=== PATIENT | female | born 1950 | race Caucasian/White ===

== ENCOUNTER → 2018-05-08 | Outpatient (CLI) | payer BC, MEDICARE ==
[~2018-05-08] MED LIST: AMIO100T4 PO; AMIO200T42 PO; APIX5TAB PO; ASPI325T17 PO; ASPI81TA45 PO; CELE200C PO; CITR15SO PO; DIAZ5TAB4 PO; DILT240C61 PO; ENOX30DI3 SQ; FURO40TA6 PO; GABA-826 PO; GABA300C10 PO; GLIP10TA13 PO; GLIP5TAB10 PO; HYDR-3307 PO; INSU100C5 SQ-INSULIN; INSU100V8 SQ; METO50TA82 PO; POTA20TA89 PO; ROSU40TA PO; SITA1TAB5 PO; SITA50TA PO; TRAM50TA2 PO; VALS80TA3 PO; WARF2.5T32 PO; iron PO
[2018-05-08 10:57] LABS: BASOPHILS # (AUTO) 0.03 x10^3/uL (0-0.1); BASOPHILS % (AUTO) 0 % (0-1); EOSINOPHILS # (AUTO) 0.05 x10^3/uL (0-0.4); EOSINOPHILS % (AUTO) 1 % (1-7); LYMPHOCYTES # (AUTO) 0.85 x10^3/uL (1-3.4); LYMPHOCYTES % (AUTO) 9 % (22-44); MD NO; MEAN CORPUSCULAR HEMOGLOBIN 27.9 pg (27.0-34.8); MEAN CORPUSCULAR HGB CONC 32.8 g/dL (32.4-35.8); MEAN CORPUSCULAR VOLUME 85.1 fL (80-100); MEAN PLATELET VOLUME 8.3 fL (7.4-10.4); MONOCYTES # (AUTO) 0.73 x10^3/uL (0.2-0.8); MONOCYTES % (AUTO) 7 % (2-9); NEUTROPHILS # (AUTO) 8.13 x10^3/uL (1.8-6.8); NEUTROPHILS % (AUTO) 83 % (42-75); PLATELET COUNT 189 x10^3/uL (130-400); RED BLOOD COUNT 5.12 x10^6/uL (3.82-5.3); RED CELL DISTRIBUTION WIDTH 15.8 % (9.6-15.2)
[2018-05-08 10:58] LABS: MICROSCOPIC AUTO
[2018-05-08 11:07] LABS: INTERNATIONAL NORMALIZED RATIO 1.15 (0.93-1.1); PROTHROMBIN TIME 12.1 Seconds (9.6-11.5)
[2018-05-08 11:08] LABS: ALANINE AMINOTRANSFERASE 63 U/L (12-78); ALBUMIN 3.3 g/dL (3.4-5.0); ANION GAP 8 mmol/L (5-15); CALCIUM 9.4 mg/dL (8.5-10.1); CHLORIDE 110 mmol/L (98-107); CREATININE 1.94 mg/dL (0.55-1.02)
[2018-05-08 11:10] LABS: ALKALINE PHOSPHATASE 100 U/L (45-117); BILIRUBIN,TOTAL 0.5 mg/dL (0.2-1.0); TOTAL PROTEIN 7.2 g/dL (6.4-8.2)
== END | disposition home or self-care (01) ==
LOC: STAR 09:29
PROVIDERS: ATTEND Urology
DX: Z01.818 Encounter for other preprocedural examination (principal); N20.0 Calculus of kidney; I45.10 Unspecified right bundle-branch block
CPT/HCPCS: 36415; 80053; 81001; 85025; 85610; 85730; 87086; 93005

== ENCOUNTER 2018-05-19 05:52 | Inpatient (IN) | payer BC, MEDICARE ==
[~2018-05-19] VITALS: Ht 154.9 cm; Wt 104.2 kg
[2018-05-19 06:30] VITALS: BP 118/75
[2018-05-19] MEDS ORDERED: LACTATED RINGERS 1,000 ML IV SCH (06:31)
[2018-05-19 06:56] LABS: INTERNATIONAL NORMALIZED RATIO 1.07 (0.93-1.1); PROTHROMBIN TIME 11.3 Seconds (9.6-11.5)
[2018-05-19] MEDS ORDERED: SODIUM CHLORIDE 0.9% 1,000 ML IV SCH (07:00)
[2018-05-19] MEDS ORDERED: VISIPAQUE 270 MG/ML, 50ML BOTTLE ONE (08:00)
[2018-05-19] MEDS ORDERED: ACETAMINOPHEN 500 MG TABLET PO ONE (12:30)
[2018-05-19] MEDS ORDERED: ONDANSETRON ODT 8 MG PO ONE (12:30)
[2018-05-19] MEDS ORDERED: GENTAMICIN 80 MG/2 ML ONE (12:39)
[2018-05-19] MEDS ORDERED: ROCURONIUM 10MG/ML,5ML ONE (13:02)
[2018-05-19] MEDS ORDERED: LACTATED RINGERS 1,000 ML ONE (13:02)
[2018-05-19] MEDS ORDERED: GLYCOPYRROLATE 0.2MG/1ML, 5ML ONE (13:02)
[2018-05-19] MEDS ORDERED: LIDOCAINE 2% 100MG/5ML SYRINGE ONE (13:02)
[2018-05-19] MEDS ORDERED: FENTANYL PF 100 MCG/2ML ONE (13:02)
[2018-05-19] MEDS ORDERED: MIDAZOLAM 1 MG/ML, 5ML ONE (13:02)
[2018-05-19] MEDS ORDERED: NEOSTIGMINE 1 MG/ML, 10ML ONE (13:02)
[2018-05-19] MEDS ORDERED: CEFAZOLIN 1,000 MG ONE (13:02)
[2018-05-19] MEDS ORDERED: PROPOFOL 10 MG/ML, 20ML ONE (13:02)
[2018-05-19] MEDS ORDERED: DEXAMETHASONE 4 MG/ML, 1ML ONE (13:02)
[2018-05-19] MEDS ORDERED: EPHEDRINE 50 MG/ML, 1ML ONE (13:02)
[2018-05-19] MEDS ORDERED: HYDROmorphone 2 MG/ML, 1ML IVPush PRN (16:00)
[2018-05-19] MEDS ORDERED: LABETALOL 5MG/ML, 20ML IV PRN (16:00)
[2018-05-19] MEDS ORDERED: MEPERIDINE/PF 25MG/0.5ML IVPush PRN (16:00)
[2018-05-19] MEDS ORDERED: ALBUTEROL SULFATE 2.5 MG/3 ML NPPB PRN (16:00)
[2018-05-19] MEDS ORDERED: LORazepam 2 MG/ML, 1ML IVPush PRN (16:00)
[2018-05-19] MEDS ORDERED: OXYcodone 5 MG/5 ML ORAL.SOL UDC PO PRN (16:00)
[2018-05-19] MEDS ORDERED: METOCLOPRAMIDE 5 MG/ML, 2ML IV PRN (16:00)
[2018-05-19] MEDS ORDERED: FENTANYL PF 100 MCG/2ML IV PRN (16:00)
[2018-05-19] MEDS ORDERED: PROMETHAZINE 25 MG/ML, 1ML IV PRN (16:30)
[2018-05-19 19:15] VITALS: BP 105/37
[2018-05-19] MEDS: SULFAMETH./TRIMETHOPRIM DS 800MG/160MG TABLET PO SCH (21:39)
[2018-05-19] MEDS: ATORVASTATIN 80 MG TABLET PO SCH (21:39)
[2018-05-19 23:58] VITALS: BP 111/56
[2018-05-20 02:58] VITALS: BP 109/69
[2018-05-20 07:49] VITALS: BP 116/51
[2018-05-20] MEDS: DILTIAZEM 240 MG CAP.ER.24H PO SCH (09:00)
[2018-05-20] MEDS: AMIODARONE 200 MG TABLET PO SCH (09:29)
[2018-05-20] MEDS: SULFAMETH./TRIMETHOPRIM DS 800MG/160MG TABLET PO SCH ×2 (09:29→21:01)
[2018-05-20] MEDS: INSULIN GLARGINE 100 UNITS/ML, PEN SQ-INSULIN SCH (09:29)
[2018-05-20 15:02] VITALS: BP 118/58
[2018-05-20 20:42] VITALS: BP 132/60
[2018-05-20] MEDS: ATORVASTATIN 80 MG TABLET PO SCH (21:01)
[2018-05-20] MEDS: HYDROcodone/APAP 5/325 TABLET PO PRN (23:58)
[2018-05-21 02:17] VITALS: BP 122/56
[2018-05-21 07:29] VITALS: BP 117/60
[2018-05-21] MEDS: AMIODARONE 200 MG TABLET PO SCH (08:22)
[2018-05-21] MEDS: SULFAMETH./TRIMETHOPRIM DS 800MG/160MG TABLET PO SCH (08:22)
[2018-05-21] MEDS: HYDROcodone/APAP 5/325 TABLET PO PRN (08:22)
[2018-05-21] MEDS: INSULIN GLARGINE 100 UNITS/ML, PEN SQ-INSULIN SCH (08:23)
[2018-05-21] MEDS: DILTIAZEM 240 MG CAP.ER.24H PO SCH (08:23)
[2018-05-21] MEDS ORDERED: HYDR-3240 PO (12:38)
[2018-05-21] MEDS ORDERED: SULF1TAB24 PO (12:38)
== END 2018-05-21 13:50 | disposition home or self-care (01) | DRG 661 ==
LOC: OUT 05:52 → OBSVTOIN 18:23 → ORIP 18:23 → 4NOR 19:00 → OUT 19:17 → DCLOUNGE 05-21 13:37
PROVIDERS: ADMIT Urology; ATTEND Urology
PROC: 0T763ZZ Dilation of Right Ureter, Percutaneous Approach (ICD-10-PCS; 2018-05-19)
PROC: 0TF33ZZ Fragmentation in Right Kidney Pelvis, Percutaneous Approach (ICD-10-PCS; 2018-05-19)
PROC: BT111ZZ Fluoroscopy of Right Kidney using Low Osmolar Contrast (ICD-10-PCS; 2018-05-19)
PROC: 0T9330Z Drainage of Right Kidney Pelvis with Drainage Device, Percutaneous Approach (ICD-10-PCS; principal; 2018-05-19 12:30)
DX: N20.0 Calculus of kidney (principal); N18.9 Chronic kidney disease, unspecified; I12.9 Hypertensive chronic kidney disease with stage 1 through stage 4 chronic kidney disease, or unspecified chronic kidney disease; E11.22 Type 2 diabetes mellitus with diabetic chronic kidney disease; R09.02 Hypoxemia
CPT/HCPCS: 36415; 50433; 74425; J3490; 74176; 82360; 82962; 85610; 86850; 86900; 86923; 88300; 99156; 99157; C1729; C1894; G0378; J0690; J1100; J2250; J2550; J2704; J2710; J3010; Q0162; Q9966; C1727; C1758; C1769; C2625; J1580; J1815; J2310; J2765; J7030; J7120

== ENCOUNTER 2018-05-26 12:52 | Inpatient (IN) | payer BC, MEDICARE ==
[~2018-05-26] VITALS: Ht 154.9 cm; Wt 96.1 kg
[~2018-05-26 12:52] MED LIST changes: +HYDR-3240 PO; +SULF1TAB24 PO
[2018-05-26 14:04] LABS: MEAN CORPUSCULAR HEMOGLOBIN 27.5 pg (27.0-34.8); MEAN CORPUSCULAR HGB CONC 32.1 g/dL (32.4-35.8); MEAN CORPUSCULAR VOLUME 85.6 fL (80-100); MEAN PLATELET VOLUME 8.8 fL (7.4-10.4); PLATELET COUNT 244 x10^3/uL (130-400); RED BLOOD COUNT 4.76 x10^6/uL (3.82-5.3); RED CELL DISTRIBUTION WIDTH 15.7 % (9.6-15.2)
[2018-05-26 14:12] LABS: ALBUMIN 2.5 g/dL (3.4-5.0); ANION GAP 10 mmol/L (5-15); CALCIUM 8.4 mg/dL (8.5-10.1); CHLORIDE 101 mmol/L (98-107); CREATININE 3.31 mg/dL (0.55-1.02)
[2018-05-26 14:17] LABS: ALKALINE PHOSPHATASE 130 U/L (45-117); TOTAL PROTEIN 6.7 g/dL (6.4-8.2); TROPONIN I < 0.015 ng/mL (0.000-0.045)
[2018-05-26 14:19] LABS: ALANINE AMINOTRANSFERASE 1484 U/L (12-78)
[2018-05-26 14:23] LABS: MD YES
[2018-05-26 14:28] LABS: LYMPH#(MANUAL) 0.42 x10^3/uL (1-3.4); LYMPHS% (MANUAL) 2 % (22-44); MONOS#(MANUAL) 1.06 x10^3/uL (0.3-2.7); MONOS% (MANUAL) 5 % (2-9); SEG#(MANUAL) 19.62 x10^3/uL (1.8-6.8); SEGS% (MANUAL) 93 % (42-75)
[2018-05-26 14:29] LABS: <PLATELET ESTIMATE> ADEQUATE; <PLT MORPHOLOGY> NORMAL PLT MORPH; ANISOCYTOSIS 1+; POLYCHROMASIA 1+
[2018-05-26] MEDS ORDERED: ONDANSETRON 2MG/ML, 2ML IVPush ONE (14:30)
[2018-05-26] MEDS ORDERED: SODIUM CHLORIDE 0.9% 1,000ML IVBOLUS ONE (14:30)
[2018-05-26] MEDS ORDERED: SODIUM CHLORIDE FLUSH 10ML SYR IVF ONE (14:30)
[2018-05-26] MEDS ORDERED: MORPHINE SULFATE 4 MG/ML, 1ML IVPush PRN ×2 (14:30→19:00)
[2018-05-26 16:11] LABS: MICROSCOPIC INDICATED
[2018-05-26 16:12] LABS: CULTURE INDICATED? YES
[2018-05-26] MEDS ORDERED: CEFTRIAXONE PMX 1GM/50ML 50 ML IV ONE (17:00)
[2018-05-26 17:13] LABS: MICROSCOPIC INDICATED
[2018-05-26 17:32] LABS: CULTURE INDICATED? NO
[2018-05-26] MEDS ORDERED: CEFTRIAXONE PMX 1GM/50ML 50 ML ONE (18:00)
[2018-05-26 18:45] VITALS: BP 141/83
[2018-05-26] MEDS ORDERED: CEFTRIAXONE PMX 1GM/50ML 50 ML IV SCH (19:00)
[2018-05-26 19:20] VITALS: BP 161/83
[2018-05-26] MEDS ORDERED: LIDODERM 5% PATCH TD PRN (19:30)
[2018-05-26] MEDS ORDERED: ONDANSETRON 2MG/ML, 2ML IVPush PRN (19:30)
[2018-05-26] MEDS ORDERED: TEMAZEPAM 15 MG CAPSULE PO PRN (19:30)
[2018-05-26] MEDS ORDERED: DOCUSATE 100 MG CAPSULE PO PRN (19:30)
[2018-05-26] MEDS ORDERED: morphine SULFATE 10 MG/ML, 1ML IVPush PRN (19:30)
[2018-05-26] MEDS ORDERED: hydrALAzine 20 MG/ML, 1ML IVPush PRN (19:30)
[2018-05-26] MEDS ORDERED: PHARMACY MAY ADJ FOR RENAL FX MC PRN (20:30)
[2018-05-26] MEDS ORDERED: APIXABAN 5 MG TABLET PO SCH (21:00)
[2018-05-26] MEDS ORDERED: ATORVASTATIN 80 MG TABLET PO SCH (21:00)
[2018-05-26] MEDS ORDERED: ONDANSETRON 4 MG TABLET ONE (23:13)
[2018-05-26] MEDS ORDERED: ONDANSETRON ODT 4 MG PO PRN (23:30)
[2018-05-26] MEDS: INSULIN LISPRO 100 UNITS/ML, PEN SQ-INSULIN SCH (23:41)
[2018-05-27 01:53] VITALS: BP 108/66
[2018-05-27] MEDS ORDERED: CEFTRIAXONE PMX 1GM/50ML 50 ML IV SCH (06:00)
[2018-05-27 07:04] VITALS: BP 101/64
[2018-05-27] MEDS: INSULIN LISPRO 100 UNITS/ML, PEN SQ-INSULIN SCH ×4 (07:23→20:40)
[2018-05-27] MEDS: CEFTRIAXONE PMX 1GM/50ML 50 ML IV SCH (08:53)
[2018-05-27] MEDS: INSULIN GLARGINE 100 UNITS/ML, PEN SQ-INSULIN SCH (08:54)
[2018-05-27] MEDS: AMIODARONE 200 MG TABLET PO SCH (08:54)
[2018-05-27] MEDS: LINAGLIPTIN 5 MG TAB PO SCH (08:55)
[2018-05-27] MEDS: DILTIAZEM 240 MG CAP.ER.24H PO SCH (08:55)
[2018-05-27 09:06] LABS: INTERNATIONAL NORMALIZED RATIO 1.3 (0.93-1.1)
[2018-05-27 09:39] LABS: PROTHROMBIN TIME 13.6 Seconds (9.6-11.5)
[2018-05-27 12:38] VITALS: BP 118/74
[2018-05-27] MEDS ORDERED: FENTANYL PF 100 MCG/2ML ONE ×2 (13:58→15:09)
[2018-05-27] MEDS ORDERED: MIDAZOLAM 1 MG/ML, 2ML IV PRN (14:00)
[2018-05-27] MEDS ORDERED: ALBUTEROL/IPRATROPIUM 2.5MG/0.5MG, 3 ML NPPB PRN (14:00)
[2018-05-27] MEDS ORDERED: ONDANSETRON 2MG/ML, 2ML IV PRN (14:00)
[2018-05-27] MEDS ORDERED: OXYcodone 5 MG/5 ML ORAL.SOL UDC PO PRN (14:00)
[2018-05-27] MEDS ORDERED: METOPROLOL 1 MG/ML, 5ML IV PRN (14:00)
[2018-05-27] MEDS ORDERED: ACETAMINOPHEN 325 MG TABLET PO PRN (14:00)
[2018-05-27] MEDS ORDERED: hydrALAzine 20 MG/ML, 1ML IV PRN (14:00)
[2018-05-27] MEDS ORDERED: PROPOFOL 10 MG/ML, 20ML ONE (14:01)
[2018-05-27] MEDS ORDERED: ONDANSETRON 2MG/ML, 2ML ONE ×2 (14:01→15:06)
[2018-05-27] MEDS ORDERED: DEXAMETHASONE 4 MG/ML, 1ML ONE (14:01)
[2018-05-27] MEDS: FENTANYL PF 100 MCG/2ML IV PRN ×2 (15:11→15:25)
[2018-05-27] MEDS: SODIUM CHLORIDE 0.9% 1,000 ML IV SCH ×2 (15:45→22:30)
[2018-05-27 19:06] VITALS: BP 113/64
[2018-05-28 00:11] VITALS: BP 97/60
[2018-05-28 03:48] VITALS: BP 130/70
[2018-05-28 05:32] LABS: BASOPHILS # (AUTO) 0.01 x10^3/uL (0-0.1); BASOPHILS % (AUTO) 0 % (0-1); EOSINOPHILS % (AUTO) 0 % (1-7); LYMPHOCYTES # (AUTO) 0.29 x10^3/uL (1-3.4); LYMPHOCYTES % (AUTO) 3 % (22-44); MD NO; MEAN CORPUSCULAR HEMOGLOBIN 27.9 pg (27.0-34.8); MEAN CORPUSCULAR HGB CONC 32.4 g/dL (32.4-35.8); MEAN CORPUSCULAR VOLUME 86.1 fL (80-100); MEAN PLATELET VOLUME 9.2 fL (7.4-10.4); MONOCYTES # (AUTO) 0.63 x10^3/uL (0.2-0.8); MONOCYTES % (AUTO) 6 % (2-9); NEUTROPHILS # (AUTO) 9.23 x10^3/uL (1.8-6.8); NEUTROPHILS % (AUTO) 91 % (42-75); PLATELET COUNT 215 x10^3/uL (130-400); RED CELL DISTRIBUTION WIDTH 15.8 % (9.6-15.2)
[2018-05-28 05:52] LABS: CHLORIDE 105 mmol/L (98-107)
[2018-05-28 06:09] LABS: ALANINE AMINOTRANSFERASE 874 U/L (12-78); ALBUMIN 2.2 g/dL (3.4-5.0); ALKALINE PHOSPHATASE 128 U/L (45-117); ANION GAP 7 mmol/L (5-15); BILIRUBIN,TOTAL 0.8 mg/dL (0.2-1.0); CALCIUM 8.7 mg/dL (8.5-10.1); CREATININE 2.58 mg/dL (0.55-1.02); TOTAL PROTEIN 6.3 g/dL (6.4-8.2)
[2018-05-28 07:36] VITALS: BP 112/71
[2018-05-28] MEDS: LINAGLIPTIN 5 MG TAB PO SCH (07:45)
[2018-05-28] MEDS: AMIODARONE 200 MG TABLET PO SCH (07:45)
[2018-05-28] MEDS: DILTIAZEM 240 MG CAP.ER.24H PO SCH (07:46)
[2018-05-28] MEDS: INSULIN LISPRO 100 UNITS/ML, PEN SQ-INSULIN SCH ×4 (07:47→20:52)
[2018-05-28] MEDS: INSULIN GLARGINE 100 UNITS/ML, PEN SQ-INSULIN SCH (07:47)
[2018-05-28] MEDS: SODIUM CHLORIDE 0.9% 1,000 ML IV SCH ×3 (07:49→20:50)
[2018-05-28] MEDS ORDERED: SODIUM POLYSTYRENE SULFONATE ORAL SUSP PO ONE (08:00)
[2018-05-28] MEDS ORDERED: INSULIN REGULAR 100 UNITS/ML, 3ML VIAL IVPush ONE (08:30)
[2018-05-28] MEDS: CEFTRIAXONE PMX 1GM/50ML 50 ML IV SCH (09:27)
[2018-05-28] MEDS ORDERED: INSULIN REGULAR 100 UNITS/ML, 3ML VIAL SQ-INSULIN PRN ×2 (13:00)
[2018-05-28 13:06] LABS: ANION GAP 7 mmol/L (5-15); CHLORIDE 109 mmol/L (98-107)
[2018-05-28 13:09] LABS: CREATININE 2.28 mg/dL (0.55-1.02)
[2018-05-28 19:00] VITALS: BP 103/61
[2018-05-28] MEDS ORDERED: INSULIN GLARGINE 100 UNITS/ML, PEN SQ-INSULIN SCH (21:00)
[2018-05-29 01:52] VITALS: BP 125/76
[2018-05-29] MEDS: SODIUM CHLORIDE 0.9% 1,000 ML IV SCH (04:13)
[2018-05-29 05:19] LABS: ANION GAP 7 mmol/L (5-15); CALCIUM 8.5 mg/dL (8.5-10.1); CHLORIDE 111 mmol/L (98-107)
[2018-05-29 05:25] LABS: ALANINE AMINOTRANSFERASE 623 U/L (12-78); ALKALINE PHOSPHATASE 122 U/L (45-117); BILIRUBIN,TOTAL 0.8 mg/dL (0.2-1.0); CREATININE 1.95 mg/dL (0.55-1.02); TOTAL PROTEIN 5.5 g/dL (6.4-8.2)
[2018-05-29 06:22] LABS: HEMOGLOBIN A1C 8.1 % (4.2-6.3)
[2018-05-29] MEDS: INSULIN LISPRO 100 UNITS/ML, PEN SQ-INSULIN SCH ×2 (07:00→11:15)
[2018-05-29] MEDS ORDERED: INSU100V8 SQ (07:15)
[2018-05-29] MEDS ORDERED: CIPR500T87 PO (07:15)
[2018-05-29] MEDS ORDERED: CIPROFLOXACIN 500 MG TABLET PO ONE (07:30)
[2018-05-29 08:06] VITALS: BP 139/71
[2018-05-29] MEDS: AMIODARONE 200 MG TABLET PO SCH (08:10)
[2018-05-29] MEDS: LINAGLIPTIN 5 MG TAB PO SCH (08:10)
[2018-05-29] MEDS: DILTIAZEM 240 MG CAP.ER.24H PO SCH (08:10)
[2018-05-29] MEDS ORDERED: BISACODYL 10 MG SUPP PR SCH (09:00)
[2018-05-29] MEDS ORDERED: INSULIN GLARGINE 100 UNITS/ML, PEN SQ-INSULIN SCH (09:00)
== END 2018-05-29 12:09 | disposition home or self-care (01) | DRG 853 ==
LOC: ED 17:11 → 4NOR 18:57 → DCLOUNGE 05-29 11:53
PROVIDERS: ADMIT Internal Medicine; ATTEND Internal Medicine
PROC: 0T9B70Z Drainage of Bladder with Drainage Device, Via Natural or Artificial Opening (ICD-10-PCS; principal; 2018-05-26)
PROC: 0TC68ZZ Extirpation of Matter from Right Ureter, Via Natural or Artificial Opening Endoscopic (ICD-10-PCS; 2018-05-27)
PROC: 0T768DZ Dilation of Right Ureter with Intraluminal Device, Via Natural or Artificial Opening Endoscopic (ICD-10-PCS; 2018-05-27)
DX: A41.9 Sepsis, unspecified organism (principal); N17.0 Acute kidney failure with tubular necrosis; E43 Unspecified severe protein-calorie malnutrition; Z68.41 Body mass index [BMI] 40.0-44.9, adult; B17.9 Acute viral hepatitis, unspecified; E87.2 Acidosis; N13.6 Pyonephrosis; K80.20 Calculus of gallbladder without cholecystitis without obstruction; E66.01 Morbid (severe) obesity due to excess calories; E11.21 Type 2 diabetes mellitus with diabetic nephropathy; E11.22 Type 2 diabetes mellitus with diabetic chronic kidney disease; Z96.653 Presence of artificial knee joint, bilateral; I48.0 Paroxysmal atrial fibrillation; T45.515A Adverse effect of anticoagulants, initial encounter; R79.1 Abnormal coagulation profile; N18.3 Chronic kidney disease, stage 3 (moderate); I12.9 Hypertensive chronic kidney disease with stage 1 through stage 4 chronic kidney disease, or unspecified chronic kidney disease; E78.5 Hyperlipidemia, unspecified; E11.65 Type 2 diabetes mellitus with hyperglycemia; E87.5 Hyperkalemia; Z79.01 Long term (current) use of anticoagulants; Z79.4 Long term (current) use of insulin; Z83.3 Family history of diabetes mellitus; Z87.442 Personal history of urinary calculi; Z95.2 Presence of prosthetic heart valve; Z98.84 Bariatric surgery status; Z88.8 Allergy status to other drugs, medicaments and biological substances; Y92.89 Other specified places as the place of occurrence of the external cause
CPT/HCPCS: 36415; 74018; 74181; 76001; 76700; 80048; 80053; 80074; 80307; 81001; 82360; 82390; 82962; 83036; 83605; 83690; 84145; 84484; 85025; 85610; 85730; 86038; 87040; 87086; 88300; 93005; 96361; 96365; 99285; G0378; J0696; J1100; J1815; J2405; J2704; J3010; C2617; J7030